=== PATIENT | female | born 1955 | race Caucasian/White ===

== ENCOUNTER 2016-07-27 13:38 | Emergency (ER) | payer OTHER ==
[2016-07-27 13:49] VITALS: BMI 21.3
[2016-07-27 13:50] VITALS: BP 116/76; PULSE 75; RESP 20; TEMP 98.1; O2SAT 100
--- NOTE | 2016-07-27 14:20 | C.PDOC ---
History Of Present Illness 60 yr old female presents to the ER with complaints of chronic lest knee pain for the past several days. Patient states she was getting knee injections before from the orthopedist [place] but they were not working. Patient does not wish for knee injections but is requesting oral pain medications. Patient states she goes to [facility] but does not have money to pay for clinic visits. Patient states she not tried any OTC medications, states the pain is localized to the left knee and is worse with weight bearing. Also notes some swelling. Patient denies recent trauma on injury. Denies back pain, leg pain, weakness or numbness. VIA TRANS CHRONIC L KNEE PAIN X SEV DAYS. PS WAS GETTING KNEE INJECTIONS BEFORE FROM ORTHOPEDIST IN HER COUN[place] BUT NOT WORKING. DOES NOT WISH KNEE INJECTIONS, REQUESTING ORAL PAIN MEDS. NO PRIOR PAIN MEDS TRIED. GOES TO [facility] BUT NO MONEY TO PAY FOR CLINIC VISITS. PAIN LOCALIZED L KNEE, WORSE W WT BEAR. +SWELL. NO TRAUMA EXAM NAD NONTOXIC EXT AROM L KNEE WO DIFF; MILD SWELL; NONTEND Time Seen by Provider: 07/27/16 14:05 Chief Complaint (Nursing): Medical Clearance History Per: Patient, Care Provider History/Exam Limitations: no limitations, language barrier (Niuean ) Onset/Duration Of Symptoms: Days (Several Days ) Past Medical History Reviewed: Historical Data, Nursing Documentation, Vital Signs Vital Signs: Last Vital Signs Temp 98.1 F 07/27/16 13:49 Pulse 75 07/27/16 13:49 Resp 20 07/27/16 13:49 BP 116/76 07/27/16 13:49 Pulse Ox 100 07/27/16 14:20 - Medical History PMH: Hypothyroidism (CANCER) Family History: States: No Known Family Hx - Social History Hx Tobacco Use: No Hx Alcohol Use: No Hx Substance Use: No - Immunization History Hx Tetanus Toxoid Vaccination: No Hx Influenza Vaccination: No Hx Pneumococcal Vaccination: No Review Of Systems Except As Marked, All Systems Reviewed And Found Negative. Musculoskeletal: Positive for: Other ((+) Left knee pain ). Negative for: Back Pain, Leg Pain Neurological: Negative for: Weakness, Numbness Physical Exam - Physical Exam Appears: Well, Non-toxic Skin: Warm, Dry, No Rash Head: Atraumatic, Normacephalic Extremity: Normal ROM (Left Knee ), No Tenderness, No Calf Tenderness, No Deformity, Swelling (Left Knee - Mild swelling. ) Neurological/Psych: Oriented x3, Normal Speech, Normal Motor ED Course And Treatment O2 Sat by Pulse Oximetry: 100 Medical Decision Making Medical Decision Making: PLAN: * Motrin PO Disposition Counseled Patient/Family Regarding: Diagnosis, Need For Followup, Rx Given - Disposition Referrals: [facility] [Outside] [facility] [Outside] Disposition: HOME/ ROUTINE Disposition Time: 14:19 Condition: GOOD Instructions: Osteoarthritis (ED) Print Language: SETSWANA - Clinical Impression Clinical Impression: Chronic knee pain - Scribe Statement The provider has reviewed the documentation as recorded by the Donavon Rush Provider Attestation: All medical record entries made by the Donavon were at my direction and personally dictated by me. I have reviewed the chart and agree that the record accurately reflects my personal performance of the history, physical exam, medical decision making, and the department course for this patient. I have also personally directed, reviewed, and agree with the discharge instructions and disposition.
== END 2016-07-27 14:26 | disposition home or self-care (01) ==
LOC: C.ER 13:38
DX: M25.562 Pain in left knee (principal); G89.29 Other chronic pain

== ENCOUNTER 2016-08-28 12:59 | Emergency (ER) | payer OTHER ==
[2016-08-28 12:59] VITALS: BMI 21.3
[2016-08-28] MEDS ORDERED: Sodium Chloride 0.9% 1,000 ML IV ONE (13:14)
[2016-08-28 13:39] LABS: BASO % 1.1 % (0.0-2.0); EOS # 0.1 K/uL (0.0-0.7); EOS % 3.2 % (0.0-4.0); HEMATOCRIT 36.6 % (34.0-47.0); LYMPH # 1.4 K/uL (1.0-4.3); LYMPH % 51.7 % (20.0-40.0); MEAN CELL VOLUME 92.1 fL (81.0-99.0); MEAN CORPUSCULAR HEMOGLOBIN 30.3 pg (27.0-31.0); MEAN CORPUSCULAR HGB CONC 32.9 g/dL (33.0-37.0); MEAN PLATELET VOLUME 8.3 fL (7.2-11.7); MONO # 0.3 K/uL (0.0-0.8); MONO % 11.5 % (0.0-10.0); RED CELL DISTRIBUTION WIDTH 13.1 % (11.5-14.5); WHITE BLOOD COUNT 2.8 K/uL (4.8-10.8)
[2016-08-28] MEDS ORDERED: Sodium Chloride 0.9% 1,000 ML ONE (13:39)
[2016-08-28 13:45] LABS: RBC URINE 2 /hpf (0-3); URINE BILIRUBIN NEGATIVE (NEGATIVE); URINE BLOOD 1+ (NEGATIVE); URINE COLOR Yellow (YELLOW); URINE GLUCOSE (UA) NORMAL (Normal); URINE KETONE NEGATIVE (NEGATIVE); URINE LEUKOCYTE ESTERASE NEG Leu/uL (Negative); URINE PROTEIN NEGATIVE (NEGATIVE); URINE UROBILINOGEN NORMAL mg/dL (0.2-1.0)
--- NOTE | 2016-08-28 13:48 | C.PDOC ---
Time Seen by Provider: 08/28/16 13:05 Chief Complaint (Nursing): Abdominal Pain History Per: Patient Onset/Duration Of Symptoms: Days (about 2 weeks), Intermittent Episodes Current Symptoms Are (Timing): Still Present Severity: Moderate Location Of Pain/Discomfort: Epigastric Radiation Of Pain To:: Chest (throat) Quality Of Discomfort: Unable To Describe, Burning Associated Symptoms: Loss Of Appetite (?) Exacerbating Factors: Food Last Bowel Movement: Today Additional History Per: Prior Records Past Medical History Reviewed: Historical Data, Nursing Documentation, Vital Signs Vital Signs: Last Vital Signs Temp 98.6 F 08/28/16 13:00 Pulse 107 H 08/28/16 13:00 Resp 18 08/28/16 13:00 BP 126/86 08/28/16 13:00 Pulse Ox 95 08/28/16 13:48 - Medical History PMH: Hypothyroidism Other Surgeries: Thyroidectomy Family History: States: Unknown Family Hx - Social History Hx Tobacco Use: No Hx Alcohol Use: No Hx Substance Use: No - Immunization History Hx Tetanus Toxoid Vaccination: No Hx Influenza Vaccination: No Hx Pneumococcal Vaccination: No Review Of Systems Except As Marked, All Systems Reviewed And Found Negative. Constitutional: Negative for: Fever Respiratory: Negative for: Shortness of Breath Gastrointestinal: Positive for: Abdominal Pain. Negative for: Vomiting, Diarrhea, Melena, Hematochezia, Hematemesis Genitourinary: Positive for: Dysuria (?) Skin: Negative for: Rash Neurological: Negative for: Weakness, Numbness, Seizures, Altered Mental Status Psych: Positive for: Anxiety Physical Exam - Physical Exam Appears: Non-toxic, No Acute Distress Skin: Normal Color, Warm, Dry, No Rash Head: Atraumatic, Normacephalic Eye(s): bilateral: PERRL, EOMI Neck: Normal ROM, Supple Cardiovascular: Rhythm Regular Respiratory: Normal Breath Sounds, No Accessory Muscle Use Gastrointestinal/Abdominal: Soft, No Tenderness, No Distention Back: No CVA Tenderness Extremity: Normal ROM Neurological/Psych: Oriented x3, Normal Speech, Normal Motor, Normal Sensation ED Course And Treatment - Laboratory Results Result Diagrams: 08/28/16 13:33 08/28/16 13:33 Lab Interpretation: No Acute Changes Urine POC: Negative O2 Sat by Pulse Oximetry: 95 Pulse Ox Interpretation: Normal Progress - Interventions Interventions:: Observation, Intravenous fluid - Medications Administered Intravenous: Antiemetic, H-2 rebeka - Data Reviewed Data Reviewed: Lab, Old records - Patient Status Patient status: Mostly improved - Continuity of Care Discussed patient case with:: Patient, ED Nurse - Patient Plan Patient Plan: Discharge, F/U with PCP, Continue present meds Disposition Counseled Patient/Family Regarding: Studies Performed, Diagnosis, Need For Followup, Rx Given - Disposition Referrals: Ethan Quiros MD [Non-Staff] - Disposition: HOME/ ROUTINE Disposition Time: 14:10 Condition: IMPROVED Additional Instructions: Follow up with your doctor within 1-2 weeks for further evaluation and treatment. Return to the ER if you develop fever, vomiting, bloody or black stools, worsening of symptoms or if you have any other concerns. Prescriptions: Pantoprazole Sodium [Protonix] 40 mg PO DAILY #14 ect Instructions: Gastritis (ED) Print Language: SLOVENIAN - Clinical Impression Clinical Impression: Abdominal pain
[2016-08-28 14:00] LABS: CHLORIDE 100 mmol/L (98-107); POTASSIUM 3.8 mmol/L (3.6-5.2); SODIUM 138 mmol/L (132-148)
[2016-08-28 14:02] LABS: ALB/GLOB RATIO 1.7 (1.0-2.1); ALKALINE PHOSPHATASE 70 U/L (38-126); AST/SGOT 35 U/L (14-36); BILIRUBIN,TOTAL 0.6 mg/dL (0.2-1.3); BLOOD UREA NITROGEN 19 mg/dL (7-17); CARBON DIOXIDE 27 mmol/L (22-30); GFR AFRICAN-AMERICAN > 60; TOTAL PROTEIN 7.4 g/dL (6.3-8.3)
[2016-08-28 14:03] LABS: ALT/SGPT 32 U/L (9-52); CALCIUM 9.2 mg/dl (8.6-10.4); GLUCOSE,RANDOM 104 mg/dL (65-105)
[2016-08-28 14:28] VITALS: BP 125/81; PULSE 63; RESP 20; TEMP 97.6; O2SAT 100
== END 2016-08-28 14:53 | disposition home or self-care (01) ==
LOC: C.ER 12:59
DX: R10.13 Epigastric pain (principal)
CPT/HCPCS: 80053; 81001; 83690; 84703; 85025; 96361; 96374; 96375; 99283; J2765; J7040

== ENCOUNTER 2017-11-15 10:47 | Emergency (ER) | payer MEDICAID, OTHER ==
[2017-11-15 10:48] VITALS: BMI 21.3
[2017-11-15 11:27] LABS: BASO % 1.1 % (0.0-2.0); EOS # 0.1 K/uL (0.0-0.7); EOS % 1.7 % (0.0-4.0); HEMOGLOBIN 12.7 g/dL (11.0-16.0); LYMPH # 1.6 K/uL (1.0-4.3); LYMPH % 49.2 % (20.0-40.0); MEAN CELL VOLUME 91.1 fL (81.0-99.0); MEAN CORPUSCULAR HEMOGLOBIN 30.8 pg (27.0-31.0); MEAN CORPUSCULAR HGB CONC 33.8 g/dL (33.0-37.0); MEAN PLATELET VOLUME 8.2 fL (7.2-11.7); MONO # 0.3 K/uL (0.0-0.8); MONO % 10.8 % (0.0-10.0); NEUT # 1.2 K/uL (1.8-7.0); NEUT % 37.2 % (50.0-75.0); NRBC % 0.1 % (0.0-2.0); RBC 4.13 Mil/uL (3.80-5.20); RED CELL DISTRIBUTION WIDTH 13.9 % (11.5-14.5)
[2017-11-15 11:29] LABS: WHITE BLOOD COUNT 3.2 K/uL (4.8-10.8)
[2017-11-15] MEDS ORDERED: Sodium Chloride 0.9% 500 ML IV ONE (11:38)
[2017-11-15 11:40] LABS: ALB/GLOB RATIO 1.4 (1.0-2.1); ALBUMIN 4.5 g/dL (3.5-5.0); ALT/SGPT 25 U/L (9-52); AST/SGOT 22 U/L (14-36); BLOOD UREA NITROGEN 14 mg/dL (7-17); CALCIUM 9.7 mg/dl (8.6-10.4); GFR NON-AFRICAN AMERICAN > 60
[2017-11-15 11:51] LABS: SQUAMOUS EPITHIAL < 1 /hpf (0-5); URINE BILIRUBIN NEGATIVE (NEGATIVE); URINE BLOOD 1+ (NEGATIVE); URINE CLARITY Clear (Clear); URINE COLOR Yellow (YELLOW); URINE GLUCOSE (UA) NORMAL (Normal); URINE LEUKOCYTE ESTERASE NEG Leu/uL (Negative); URINE PROTEIN NEGATIVE (NEGATIVE); URINE UROBILINOGEN NORMAL mg/dL (0.2-1.0)
--- NOTE | 2017-11-15 12:04 | C.PDOC ---
History Of Present Illness Patient presents to ED c/o sore taste in her mouth and upper abdominal "discomfort". She states she felt generalized weakness today, so she came to ED in stead of her PMD's office. She denies vomiting, diarrhea, chest pain, SOB , fever, cough, dysuria. Time Seen by Provider: 11/15/17 11:28 Chief Complaint (Nursing): Abdominal Pain History Per: Patient History/Exam Limitations: no limitations Onset/Duration Of Symptoms: Days Current Symptoms Are (Timing): Still Present Severity: Mild Associated Symptoms: denies: Fever, Chills, Nausea, Vomiting, Diarrhea Past Medical History Reviewed: Historical Data, Nursing Documentation, Vital Signs Vital Signs: Last Vital Signs Temp 99.1 F 11/15/17 11:03 Pulse 98 H 11/15/17 11:03 Resp 20 11/15/17 11:03 BP 122/76 11/15/17 11:03 Pulse Ox 97 11/15/17 12:56 - Medical History PMH: Hypothyroidism Family History: States: No Known Family Hx - Social History Hx Tobacco Use: No Hx Alcohol Use: No Hx Substance Use: No - Immunization History Hx Tetanus Toxoid Vaccination: No Hx Influenza Vaccination: No Hx Pneumococcal Vaccination: No Review Of Systems Constitutional: Positive for: Weakness (generalized ). Negative for: Fever, Chills Cardiovascular: Negative for: Chest Pain Respiratory: Negative for: Cough, Shortness of Breath Gastrointestinal: Positive for: Other (upper abdominal discomfort ). Negative for: Nausea, Vomiting, Diarrhea Genitourinary: Negative for: Dysuria, Hematuria Physical Exam - Physical Exam Appears: Well, Non-toxic, No Acute Distress Oral Mucosa: Moist Cardiovascular: Rhythm Regular Respiratory: Normal Breath Sounds, No Rales, No Rhonchi, No Wheezing Gastrointestinal/Abdominal: Normal Exam, Bowel Sounds, Soft, No Tenderness Neurological/Psych: Oriented x3 ED Course And Treatment - Laboratory Results Result Diagrams: 11/15/17 11:23 11/15/17 11:23 O2 Sat by Pulse Oximetry: 97 (RA) Pulse Ox Interpretation: Normal Progress Note: Blood work, UA, EKG ordered and reviewed. Patient given IV NS bolus, IV Protonix. Disposition Counseled Patient/Family Regarding: Studies Performed, Diagnosis, Need For Followup, Rx Given - Disposition Referrals: [facility] [Outside] Yoon,Margie A, DO [Emergency Provider] - Quang Lyons MD [Staff Provider] - Disposition: HOME/ ROUTINE Disposition Time: 13:20 Condition: STABLE Additional Instructions: FOLLOW UP WITH YOUR DOCTOR/CLINIC IN 1-2 DAYS USE MEDICATION DAILY YOU NEED TO FOLLOW UP WITH VENEER PULLER WITHIN 1 WEEK RETURN TO EMERGENCY ROOM IF SYMPTOMS WORSEN SEGUIMIENTO CON UNGER MDICO / CLNICA EN 1-2 NEGRON USE MEDICAMENTOS DIARIAMENTE NECESITA SEGUIR CON GASTROENTERLOGO DENTRO DE 1 SEMANA REGRESE AL KAVEH DE EMERGENCIA SI LOS SNTOMAS EMPEORAN Prescriptions: Pantoprazole [Protonix EC Tab] 20 mg PO DAILY #30 ect Instructions: Acid Reflux (Gastroesophageal Reflux Disease), Adult (DC) Forms: Guest of a Guest (Swedish) Print Language: DANISH - POA Present On Arrival: None - Clinical Impression Clinical Impression: Epigastric burning sensation, Acid reflux
[2017-11-15 12:11] LABS: LIPASE 127 U/L (23-300)
[2017-11-15] MEDS ORDERED: Sodium Chloride 0.9% 1,000 ML ONE (12:41)
[2017-11-15 13:42] VITALS: BP 132/80; PULSE 66; RESP 17; TEMP 97.9; O2SAT 100
--- NOTE | 2017-11-16 14:35 | CARD ---
APPROVED REPORT Date of service: 11/15/2017 EKG Measurement Heart [id number] <Conclusion> Normal sinus rhythm Normal ECG
== END 2017-11-15 13:42 | disposition home or self-care (01) ==
LOC: C.ER 10:47
DX: K21.9 Gastro-esophageal reflux disease without esophagitis (principal); R10.13 Epigastric pain
CPT/HCPCS: 80053; 81001; 83690; 85025; 93005; 96374; 99284; C9113; J7040